=== PATIENT | female | born 1980 | race Hispanic/Latino ===

== ENCOUNTER 2018-01-16 05:17 | Emergency (ER) | payer MEDICAID, OTHER ==
[2018-01-16] MEDS ORDERED: DiphenhydrAMINE HCL 50 MG/ML VIAL ONE (06:42)
== END 2018-01-16 06:57 | disposition home or self-care (01) ==
LOC: EDH 05:17
DX: B86 Scabies (principal); H92.02 Otalgia, left ear; Z98.890 Other specified postprocedural states; Z87.891 Personal history of nicotine dependence
CPT/HCPCS: 96372; 99283; J1200